=== PATIENT | female | born 1985 | race Caucasian/White ===

== ENCOUNTER 2018-04-08 02:31 | Emergency (ER) | payer BC ==
[~2018-04-08] VITALS: Ht 170.2 cm; Wt 53.5 kg
[~2018-04-08 02:31] MED LIST: IBUPROFEN600 MG PO; NORCO 5-325 TA1 EACH ORAL; ZYRTEC10 MG ORAL
[2018-04-08 02:55] VITALS: BP 123/83
--- NOTE | 2018-04-08 02:58 | Emergency Room Report ---
History of Present Illness General Chief Complaint: Headache Source: Patient Present Illness HPI Patient reports falling and hitting her head on April 01 Patient had been drinking prior to that had taken a medication for sleeping Was witnessed at nighttime going to the restroom essentially falling and hitting the left side of her head Patient reports that since then her symptoms have persisted She has had off-and-on headaches Associate with nausea She feels foggy And has reports of emotional lability as well Denies any neck pain or photophobia Denies any homicidal or suicidal thoughts Allergies: Coded Allergies: Dog Dander (Verified Allergy, Mild, 09/13/13) sinus, runny nose Patient History Past Medical History: see triage record Pertinent Family History: none Last Menstrual Period: last month Reviewed Nursing Documentation: PMH: Agreed; PSxH: Agreed Nursing Documentation-PMH Past Medical History: No Stated History Review of Systems All Other Systems: negative except mentioned in HPI Physical Exam Vital Signs Date Time Temp Pulse Resp B/P (MAP) Pulse Ox O2 Delivery O2 Flow Rate FiO2 04/08/18 02:44 97.8 70 16 123/83 99 Room Air 97.9 Sp02 EP Interpretation: reviewed, normal General Appearance: well appearing, no apparent distress Head: normocephalic, atraumatic Eyes: bilateral eye PERRL, bilateral eye EOMI ENT: hearing grossly normal, normal pharynx, TMs + canals normal, uvula midline Neck: full range of motion, supple, no meningismus, no bony tend Respiratory: lungs clear, normal breath sounds, no rhonchi, no respiratory distress, no retraction, no accessory muscle use Cardiovascular #1: normal peripheral pulses, regular rate, rhythm, no edema, no gallop, no JVD, no murmur Gastrointestinal: normal bowel sounds, non tender, soft, no mass, no organomegaly, non-distended, no guarding, no hernia, no pulsatile mass, no rebound Genitourinary: no CVA tenderness Musculoskeletal: normal inspection Neurologic: oriented x3, responsive, pipeline engineer III-XII nml as tested, motor strength/ tone normal, sensory intact Psychiatric: mood/affect normal Skin: normal color, no rash, warm/dry, palpation normal Lymphatic: normal inspection, no adenopathy Medical Decision Making Diagnostic Impression: Primary Impression: Head injury ER Course Given the patient's concussive syndrome type symptoms including nausea vomiting And continued headache CT imaging is warranted Patient CT head was negative for any acute disease At this time patient requested medication for anxiety as well for her airplane flight coming up Also was given nausea medicine feel significantly improved and is stable for close outpatient follow-up CT/MRI/US Diagnostic Results CT/MRI/US Diagnostic Results : Impression CT head no acute disease Last Vital Signs Date Time Temp Pulse Resp B/P (MAP) Pulse Ox O2 Delivery O2 Flow Rate FiO2 04/08/18 02:44 97.8 70 16 123/83 99 Room Air 97.9 Status: improved Disposition: HOME, SELF-CARE Condition: Improved Additional Instructions: Patient is provided with the discharge instructions notified to follow up with primary doctor in the next 2-3 days otherwise return to the er with any worsening symptoms. Please note that this report is being documented using [employer] technology. This can lead to erroneous entry secondary to incorrect interpretation by the dictating instrument. Elisabeth Villarreal DO Apr 08, 2018 02:58
[2018-04-08 04:13] VITALS: BP 0/0
[2018-04-08] MEDS ORDERED: ALPRAZolam 0.5mg tab ORAL ONE (04:15)
--- NOTE | 2018-04-08 10:17 | Diagnostic Imaging Report ---
Indication: Headache Technique: Contiguous 5 mm thick transaxial imaging of the head obtained in a Siem[employer] Sensation [address] scanner. Soft tissue and bone windows generated. Automatic Exposure Control was utilized. Total Dose length Product (DLP): 1337.[address] Dose Index Volume (CTDIvol): 70.38 mGy Comparison: none Findings: The size and configuration of the cortical sulci, basal cisterns, and ventricles are within normal limits for age. There is no mass effect, midline shift, or edema identified. There is no evidence of acute hemorrhage or abnormal intra-axial or extra-axial fluid collections. The bones and soft tissues are unremarkable. Impression: No mass effect, edema or acute bleed. [facility] has communicated the preliminary results to the Emergency Department. Their findings are largely concordant with this report. The CT scanner at [facility] is accredited by the [employer] and the scans are performed using dose optimization techniques as appropriate to a performed exam including Automatic Exposure control.
== END 2018-04-08 04:13 | disposition home or self-care (01) ==
LOC: EMR 03:11
DX: S09.8XXA Other specified injuries of head, initial encounter (principal); W19.XXXA Unspecified fall, initial encounter; Y92.009 Unspecified place in unspecified non-institutional (private) residence as the place of occurrence of the external cause
CPT/HCPCS: 70450; 99283